=== PATIENT | female | born 1960 | race American Indian/Alaskan Native ===

== ENCOUNTER 2017-03-22 10:24 | Outpatient (CLI) | payer BC ==
--- NOTE | 2017-03-22 15:31 | Mammography Report ---
Screening mammogram: Left lumpectomy for cancer. Routine views demonstrate marked retraction of the central breast from prior surgery. The remainder the breast pattern bilaterally is that of intermediate density with no other significant findings. Pattern remains unchanged compared to prior exams dated back to 2014. CAD used. Impression: Stable exam. Recommendation: Annual mammogram followup. BI-RADS CATEGORY: 2 = Benign ACR BI-RADS MAMMOGRAPHIC CODES: 0 = Needs additional imaging evaluation; 1 = Negative; 2 = Benign; 3 = Probably benign; 4 = Suspicious; 5 = Malignant; 6 = Known biopsy-proven malignancy COMMENT: 1. Dense breast tissue, i.e., adenosis, fibrocystic changes, etc., may obscure an underlying neoplasm. 2. Approximately 10% of cancers are not detected with mammography. 3. A negative mammography report should not delay biopsy if a clinically suspicious mass is present.
== END 2017-03-22 10:25 | disposition home or self-care (01) ==
LOC: SPVWC 10:24
PROVIDERS: ATTEND Internal Medicine Hematology & Oncology
DX: Z12.31 Encounter for screening mammogram for malignant neoplasm of breast (principal); Z98.890 Other specified postprocedural states
CPT/HCPCS: 77067; G0202

== ENCOUNTER 2018-03-28 10:14 | Outpatient (CLI) | payer BC ==
--- NOTE | 2018-03-31 11:43 | Mammography Report ---
BILATERAL DIGITAL SCREENING MAMMOGRAM WITH CAD: 03/28/18 10:14:00 CLINICAL: Routine screening.Breast cancer survivor status post left partial mastectomy . COMPARISON:03/22/17 FINDINGS: The breast are heterogeneously dense in the right breast is more dense than the left. Stable left central postsurgical scar. However, a new group of left upper outer calcifications has developed and requires additional imaging. No mass or architectural distortion. The right breast is negative. IMPRESSION: Left calcifications require additional workup. BI-RADS CATEGORY: 0--Needs Additional Imaging RECOMMENDATION: Recall for left ML and ML and CC magnification views. COMMENT: Patient follow-up letters are generated via our [employer] application.
== END 2018-03-28 10:15 | disposition home or self-care (01) ==
LOC: SPVWC 10:14
PROVIDERS: ATTEND Family Medicine
DX: Z12.31 Encounter for screening mammogram for malignant neoplasm of breast (principal)
CPT/HCPCS: 77067

== ENCOUNTER 2018-05-02 09:17 | Outpatient (CLI) | payer BC ==
--- NOTE | 2018-05-02 11:51 | Mammography Report ---
Stereotactic biopsy of the left breast, specimen mammography, marker placement, 2 view mammogram: The patient presents with prior partial mastectomy for cancer with new calcifications. Following placement of the patient on the stereotactic table calcifications were identified from a CC approach. Local anesthesia was applied followed by placement of the 8-gauge biopsy needle. Multiple round the clock specimens were obtained. Specimen mammography indicated that multiple sections contain the targeted calcifications. A marker was placed. Post biopsy manual compression was applied with no apparent initial bleeding noted. The patient was then bandaged. A two-view mammogram was obtained with a small amount of additional bleeding noted. A compression bandage was applied. The mammogram identified placement of the marker and removal of virtually all of the targeted calcifications. A small hematoma noted. The patient was given followup instructions and discharged with no additional complication.
--- NOTE | 2018-05-02 12:04 | History and Physical Report ---
History of Present Illness Date of examination: 05/02/18 Chief complaint: lt breast calcs., partial lt mastectomy
--- NOTE | 2018-05-02 12:06 | Procedure Note ---
Date of procedure: 05/02/18 Pre-op diagnosis: lt breast calcs Post-op diagnosis: same Procedure: stereo bx Findings: calcs removed Anesthesia: local Surgeon: SHEREE ADAMS Estimated blood loss: minimal Pathology: list (lt breast tissue) Specimen disposition: to lab Condition: stable Disposition: same day
== END 2018-05-02 09:18 | disposition home or self-care (01) ==
LOC: SPVWC 09:17
PROVIDERS: ATTEND Family Medicine
DX: D05.12 Intraductal carcinoma in situ of left breast (principal); R92.1 Mammographic calcification found on diagnostic imaging of breast; Z90.12 Acquired absence of left breast and nipple
CPT/HCPCS: 19081; 77065; 88305; A4648; 88342; 88361